=== PATIENT | female | born 1960 ===

== ENCOUNTER 2022-03-04 06:12 | Outpatient (CLI) | payer MEDICAID ==
--- NOTE | 2022-03-04 11:18 | Fluoroscopy Report ---
MODIFIED BARIUM SWALLOW INDICATION: DYSPHAGIA TECHNIQUE: Swallowing was evaluated in the lateral position under direct fluoroscopy. FINDINGS: The patient was evaluated with thin liquid, puree, semisolid and solid consistencies. No aspiration was witnessed. Penetration was witnessed with thin liquids. Mild vallecular residuals w ere seen with puree, semisolid and solid consistencies which cleared with additional swallows. IMPRESSION: No aspiration. Penetration with thin liquids. Mild vallecular residuals as described. Pl ease correlate with the formal report from speech therapy. Fluoroscopic time: 2.6 minutes Number of fluoroscopic images: 1 Signer Name: Christopher Queen Jr, MD Signed: 03/04/2022 11:13 AM Workstation Name: [id number]
== END 2022-03-04 06:13 | disposition home or self-care (01) ==
LOC: PT 06:12
PROVIDERS: ATTEND Internal Medicine
DX: R13.10 Dysphagia, unspecified (principal)
CPT/HCPCS: 74230